=== PATIENT | male | born 2000 | race Caucasian/White ===

== ENCOUNTER 2021-05-04 02:00 | Day surgery (SDC) | payer BC, SELFPAY ==
[2021-04-28 10:01] VITALS: BMI 22.5
--- NOTE | 2021-05-03 06:52 | W.PM.PROC2 ---
Procedure Note - Detailed Date of Procedure 05/11/21 Pre-op Diagnosis nasal septal deviation Post-op Diagnosis same Procedure Performed patient was prepped and draped in usual fashion general anesthesia the nose packed with Afrin and cocaine impregnated cottonoids injected xylocaine with adrenaline a right micaela transection was made left anterior and posterior tunnels elevated the bony cartilaginous junction the bony deviation was removed a strip of septal cartilage was removed both maxillary crest micro debrider the inferior turbinate reduced in size the incision closed with 4 0 chromic splints sutured in Ellis splints awakened returned to recovery a decision Surgeon Simone Angel MD Anesthesia general Description of Procedure Patient prepped and draped in usual fashion after induction of general endotracheal anesthesia. The nose was packed with cocaine 4% impregnated cottonoids. Injected 1% xylocaine 1 to [id number] epinephrine. With the aid of the 0 degree endoscope on the right side the nose was inspected the middle turbinate was medialized and turbenectomy was done with the micro debrider the ethmoid bulla opened with microdebrider as was the basal lamella and the posterior ethmoid. The natural ostia of the maxillary sinus was opened and enlarged with microdebrider thickened mucous membrane lining was removed and then packed with a mature this procedure repeated on the other sinus with identical similar findings. Uncinectomy was done on both sides. The ethomoid bulla was opened with micro debrider thickened mucos membrane was removed. Was then packed with Surgicel. Patient awakened returned to recovery in good condition. Packing No Pathology none sent Complications None Condition stable Disposition same day
--- NOTE | 2021-05-03 06:52 | PM.HPGS ---
History of Present Illness History of Present Illness Consent: Risks, benefits, and alternatives have been discussed and questions answered. Patient agrees to proceed with procedure. Chief complaint: nasal septal deviation Narrative: Kevin Cherry is a 20 year old male with a totally obstructed nose able to breathe out of his nose admitted for elective septoplasty Review of Systems Review of Systems: All systems reviewed & are unremarkable except as noted in HPI and below PMFSH Social History Social History Smoking status: Never smoker Alcohol intake: never Substance use: never Meds Home Medications and Allergies Home Medications Medication Instructions Recorded Confirmed Type No Home Medications 04/28/21 04/28/21 History Allergies Allergy/AdvReac Type Severity Reaction Status Date / Time No Known Allergies Allergy Unknown Verified 04/28/21 10:00 Exam Narrative: Exam Narrative: chest clear heart other rooms abdomen soft strange negative septum markedly deviated Assessment and Plan Additional Plan plan is a septoplasty
[2021-05-04] VITALS (7 sets, daily range): BP systolic 103–130; BP diastolic 55–89; PULSE 52–81; RESP 13–18; TEMP 36.3; O2SAT 99–100
--- NOTE | 2021-05-04 05:56 | WPDHPUPDATE1 ---
History and Physical Update Update Date/Time: 05/04/21 05:56 History and Physical has been reviewed, including an updated exam of the patient. There are NO changes in the patient's condition. Risks, benefits, and alternatives have been discussed and questions answered. Patient agrees to proceed with procedure.
--- NOTE | 2021-05-04 06:19 | WPDHPUPDATE1 ---
History and Physical Update Update Date/Time: 05/04/21 06:19 History and Physical has been reviewed, including an updated exam of the patient. There are NO changes in the patient's condition. Risks, benefits, and alternatives have been discussed and questions answered. Patient agrees to proceed with procedure.
--- NOTE | 2021-05-04 06:42 | P.PNAN_ITS ---
Anes - Initial Pre Proc Eval Procedure: Operation Date: 05/04/21 07:45 Proposed Procedures p Septoplasty - Simone Angel MD s Bilateral Inferior Turbinectomy - Simone Angel MD Date/Time: 05/04/21 06:42 Surgeon: Simone Angel MD Pre Op Diagnosis: nasal septal deviation Patient Data Age: 20 Gender: M Height: 1.93 m Weight: 84 kg Allergies Allergy/AdvReac Type Severity Reaction Status Date / Time No Known Allergies Allergy Unknown Verified 04/28/21 10:00 Home Medications Medication Instructions Recorded Confirmed Type No Home Medications 04/28/21 04/28/21 History Patient hx anesthesia problems: none Family hx anesthesia problems: none [facility] Social History Social History Smoking status: Never smoker Alcohol intake: never Substance use: never Anes - Eval Final PreProcedure Day of Procedure 05/04/21 06:42 Patient weight: normal Heart: regular rate and rhythm Lungs: clear to auscultation and normal air movement Airway: Mallampati scale class II Neurological: alert and oriented Last oral intake: >/= 8 hours ASA classification: II Emergent: no Anesthetic plan: proceed Anesthesia type and monitoring: general ETT and standard monitoring Informed Consent: The patient's anesthetic plan and its attendant risks and benefits were discussed with the patient/family/POA. Questions were solicited and answers provided to the satisfaction of the patient/family/POA.
[2021-05-04] MEDS: ACETAMINOPHEN 500 MG TABLET 1000 MG PO (07:00)
[2021-05-04] MEDS: LACTATED RINGERS 1,000 ML 30 ML IV CONT ×2 (07:00→08:45)
[2021-05-04] MEDS: LIDO 1%/EPINEPHRINE/PF 1:200,000 30 ML VIAL 9 ML XX (07:58)
--- NOTE | 2021-05-04 08:16 | W.PM.PROC2 ---
Procedure Note - Detailed Date of Procedure 05/04/21 Pre-op Diagnosis nasal septal deviation Post-op Diagnosis same Procedure Performed Septoplasty and bilateral inferior turbinectomy Surgeon Simone Angel MD Anesthesia general Description of Procedure . Patient was prepped and draped in fashion junction of the general anesthesia the nose was injected xylocaine with adrenaline after packing with 4% cocaine on cottonoids a right micaela transfixed was made left anterior and posterior tunnels elevated the bony cartilaginous junction the bony deviation was removed a strip of septal cartilage remove the maxillary crest this swelling the cartilage and bony remnants the midline of both inferior turbinates were reduced in size with the micro debrider with a 2 mm of the needle the incision closed with 4 0 chromic and the splints sutured in with 2 0 silk patient awakened returned to recovery in good condition Estimated Blood Loss 5 Drains No Packing Yes Pathology none sent Complications No immediate complications Condition stable Disposition PACU
[2021-05-04] MEDS: LIDO 1%/EPINEPHRINE 1:100,000 10 ML VIAL 11 ML INFILTRATE (08:24)
== END 2021-05-04 09:45 | disposition home or self-care (01) ==
PROVIDERS: Visit Provider Otolaryngology
PROC: (CPT 30520; principal; 2021-05-04 07:45)
PROC: (CPT 30140; 2021-05-04 07:45)
DX: J34.2 Deviated nasal septum (principal)
CPT/HCPCS: 30140; 30520; A9270; J0330; J1100; J2250; J2405; J2704; J3010; J7120

== ENCOUNTER 2021-10-05 18:32 | Emergency (ER) | payer SELFPAY ==
--- NOTE | ~2021-10-05 | XR_ITS ---
EXAMINATION: XR wrist RT min 3V DATE: 10/05/2021 18:50 INDICATION: Ulnar-sided right wrist pain post fall from skateboard. TECHNIQUE: Posteroanterior, ulnar deviation, oblique, and lateral views of the right wrist were obtai trang. COMPARISON: none FINDINGS: Tiny nondisplaced avulsion fracture at the tip of the ulnar styloid process. Alignment remains essent ially anatomic. No other fractures identified. Joint spaces are normal. Mild soft tissue swelling abo ut the ulnar styloid process. IMPRESSION: 1. Tiny nondisplaced avulsion fracture at the tip of the ulnar styloid process. Reviewed, dictated and finalized at location [facility]. [facility]
--- NOTE | 2021-10-05 18:36 | ED.UPPEXIN ---
HPI - Extremity Injury (Upper) General Chief Complaint: Extremity Injury, Upper Stated Complaint: Right Wrist pain Time Seen by Provider: 10/05/21 18:36 Source: patient, family and RN notes reviewed History of Present Illness HPI narrative: Patient is a 21-year-old male who presents the urgent care with his mother with complaints of right wrist injury. Patient states that he fell onto his right wrist out forward off his skateboard at approximately 4 PM this evening. Patient has not taken anything [id number] for his pain or placed ice on the wrist. Denies of hitting his head or any loss of consciousness with the fall. Denies of any other injuries from the fall. States that he has fractured both arms/wrist in the past. Denies of any foreign body to the bone. No other acute complaints. No acute distress noted. Patient aware of the plan of care. Some parts of this dictation were generated by voice recognition software and may contain typographical and/or grammatical inaccuracies. Related Data Allergies Allergy/AdvReac Type Severity Reaction Status Date / Time No Known Allergies Allergy Unknown Verified 05/10/21 09:12 Review of Systems Review of Systems: CONSTITUTIONAL: Denies fever, chills, or sweats. EYES: Denies visual changes, redness, or discharge. ENT: Denies rhinorrhea, congestion, sore throat, or otalgia. CARDIOVASCULAR: Denies chest pain, palpitations, or edema. RESPIRATORY: Denies cough or dyspnea. GASTROINTESTINAL: Denies abdominal pain, nausea, vomiting, or diarrhea. GENITOURINARY: Denies dysuria or hematuria. SKIN: Denies rash or itching. MUSCULOSKELETAL: Reports of right wrist pain NEUROLOGIC: Denies headache, numbness, or weakness. All other systems reviewed are negative, except as documented in HPI. PMFSH Social History Social History Smoking status: Never smoker Alcohol intake: never Substance use: never Comments At the time of my signature, I reviewed and agree with the nursing past medical, surgical, social, and family history. There is no relevant family history pertinent to the patient complaint. Exam Narrative: GENERAL: This is a well-nourished, well-developed patient, in no apparent distress. HEAD: normocephalic, atraumatic. EYES: PERRL. Sclera clear/white. Vision is grossly intact. EARS: External ears normal NOSE: External nose normal with no obvious nasal discharge, nares without redness, no rhinorrhea. THROAT: Mucous membranes moist NECK: Neck supple CARDIOVASCULAR: Regular rate and rhythm without murmurs, gallops, or rubs. RESPIRATORY: Clear to auscultation. Breath sounds equal bilaterally. No wheezes, rales, or rhonchi. SKIN: warm, intact with no suspicious lesions or rash, good texture and turgor. NEURO: awake, alert, and oriented to person, place and time. There were no obvious focal neurologic abnormalities. EXTREMITIES: Mild pain to the radial aspect of the right wrist with rotation. No obvious deformity or injury noted. No edema, ecchymosis or erythema to the right upper extremity. Positive strong right radial pulse with capillary refill less than 2 seconds. Course Vital Signs Vital signs: Vital Signs Temperature 98.9 F 10/05/21 18:41 Pulse Rate 72 10/05/21 18:41 Respiratory Rate 16 10/05/21 18:41 Blood Pressure 133/64 10/05/21 18:41 Pulse Oximetry 100 10/05/21 18:41 Temperature 98.9 F 10/05/21 18:41 Pulse Rate 72 10/05/21 18:41 Respiratory Rate 16 10/05/21 18:41 Blood Pressure 133/64 10/05/21 18:41 Pulse Oximetry 100 10/05/21 18:41 Reviewed MDM - Extremity Injury (Upper) MDM Narrative Medical decision making narrative: Reviewed x-ray results with patient and mother. Aware the x-ray shows slight avulsion fracture to the right ulna. Considering you are refusing the temporary OCL, highly advised to wear the old wrist splint that you have at home. We will Randy wrap the wrist prior to discha
[2021-10-05 18:41] VITALS: BP 133/64; PULSE 72; RESP 16; TEMP 37.2; O2SAT 100
== END 2021-10-05 19:17 | disposition home or self-care (01) ==
PROVIDERS: Emergency Provider Nurse Practitioner Family
DX: S52.614A Nondisplaced fracture of right ulna styloid process, initial encounter for closed fracture (principal); V00.131A Fall from skateboard, initial encounter
CPT/HCPCS: 73110; 99213; G0463

== ENCOUNTER 2022-04-04 13:21 | Emergency (ER) | payer OTHER, SELFPAY ==
[2022-04-04 13:42] VITALS: BP 133/67; PULSE 79; RESP 18; TEMP 37.3; O2SAT 100
--- NOTE | 2022-04-04 13:59 | ED.URI ---
HPI - URI/Sore Throat General Chief Complaint: Upper Respiratory Infection Stated Complaint: Flu Sx Time Seen by Provider: 04/04/22 14:00 Source: patient, RN notes reviewed and old records reviewed Mode of arrival: ambulatory Limitations: no limitations History of Present Illness HPI Narrative: 21 year old male who presents to [facility] care with Mother with complaints of sore throat, body aches, chills, dry cough, fever since yesterday. Patient reports that he took a home COVID test at 0100 and it was negative. Patient reports that he has had fevers up to 101.8F, has taken some Tylenol but has not taken any today. Patient reports that he has had COVID twice has had COVID vaccinations and Flu shot. Patient states that his appetite is decreased but he is drinking fluids. 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 MD elicited complaint: fever, cough (dry cough), sore throat and other (headache and bodyaches) Pertinent past history: seasonal allergies and other (strep throat) Onset (ago): day(s) (1) Treatments prior to arrival: acetaminophen Related Data Allergies Allergy/AdvReac Type Severity Reaction Status Date / Time No Known Allergies Allergy Unknown Verified 05/10/21 09:12 Review of Systems Review of Systems: CONSTITUTIONAL: Denies fever, chills, or sweats. EYES: Denies visual changes, redness, or discharge. ENT: Denies rhinorrhea, congestion, sore throat, or otalgia. CARDIOVASCULAR: Denies chest pain, palpitations, or edema. RESPIRATORY: Denies cough or dyspnea. GASTROINTESTINAL: Denies abdominal pain, nausea, vomiting, or diarrhea. GENITOURINARY: Denies dysuria or hematuria. SKIN: Denies rash or itching. MUSCULOSKELETAL: Denies back pain, joint pain, or myalgia. NEUROLOGIC: Denies headache, numbness, or weakness. PSYCHIATRIC: Denies anxiety or depression. All systems reviewed & are unremarkable except as noted in HPI and below PMFSH Past Medical History Medical History (Updated 04/04/22 @ 19:28 by Neetu Combs NP) COVID-08 October 2020, November of 2021 Fracture of left upper extremity X1 Fracture of right upper extremity x2 Fracture of ulnar styloid Strep throat Surgical History Surgical History (Updated 04/04/22 @ 19:23 by Neetu Combs NP) S/P manipulation of deviated nasal septum Social History Social History Smoking status: Never smoker Alcohol intake: never Substance use: never Comments At time of signature, agree with nursing past medical, surgical, social and family history. There is no relevant family history pertinent to the presenting complaint Exam Narrative: GENERAL: ill-appearing, well-nourished, and in no acute distress. HEAD: Normocephalic, atraumatic. EYES: PERRLA and EOMI. ENT: Nares clear, no rhinorrhea or epistaxis. Mucous membranes moist.T's normal with good light reflex, throat red with tonsils enlarged NECK: Supple. lymphadenopathy CHEST: Clear to auscultation. No respiratory distress.SAO2 100% on room air HEART: Regular rate and rhythm. No murmur heard. Normal peripheral pulses. ABDOMEN: Soft, nontender, nondistended, normal active bowel sounds. EXTREMITIES: Normal range of motion. No edema. SKIN: Warm, dry, no rash. NEURO: No focal deficits. Alert and oriented x3. Course Course Level of Care: Express Care Visit Vital Signs Vital signs: Vital Signs Temperature 37.3 C 04/04/22 13:42 Pulse Rate 79 04/04/22 13:42 Respiratory Rate 18 04/04/22 13:42 Blood Pressure 133/67 04/04/22 13:42 Pulse Oximetry 100 04/04/22 13:42 Temperature 37.3 C 04/04/22 13:42 Pulse Rate 79 04/04/22 13:42 Respiratory Rate 18 04/04/22 13:42 Blood Pressure 133/67 04/04/22 13:42 Pulse Oximetry 100 04/04/22 13:42 MDM - URI/Sore Throat Differential Diagnosis Differential diagnosis: Likely upper respiratory infection, pharyngitis and other (Strep pharyngitis, tonsillitis
== END 2022-04-04 14:23 | disposition home or self-care (01) ==
PROVIDERS: Emergency Provider Registered Nurse
DX: J03.90 Acute tonsillitis, unspecified (principal); Z86.16 Personal history of COVID-19
CPT/HCPCS: 87081; 87804; 87880; 99213; G0463